=== PATIENT | female | born 1995 | race Caucasian/White ===

== ENCOUNTER 2017-02-26 22:44 | Emergency (ER) | payer OTHER ==
[~2017-02-26] VITALS: Ht 154.9 cm; Wt 73.5 kg
[2017-02-26 22:47] VITALS: BP 166/100
[2017-02-26] MEDS ORDERED: CLARITIN 1010 MG/TAB PO (22:53)
[2017-02-27 01:00] LABS: INFLUENZA B NEGATIVE
[2017-02-27] MEDS ORDERED: LEVAQUIN 750MG750 M1 PO (01:11)
[2017-02-27 01:45] VITALS: PULSE 88; TEMP 97.2
== END 2017-02-27 01:45 | disposition home or self-care (01) ==
LOC: COL.ER 22:44
PROVIDERS: Emergency Medicine
DX: J20.9 Acute bronchitis, unspecified (principal)